=== PATIENT | male | born 1945 | race Caucasian/White ===

== ENCOUNTER 2023-02-21 08:57 | Outpatient (CLI) | payer OTHER, SELFPAY ==
[2023-02-21] MEDS: albuterol 2.5 mg/3 mL Neb INHALATION (09:43)
--- NOTE | 2023-02-21 10:53 | XR_ITS ---
WS: [id number] Exam: XR chest 2V* [id number] Date/Time of Exam: 02/21/2023 10:56 AM Reason For Exam: ASTHMA No priors. The lungs are clear and fully expanded. Normal cardiomediastinal silhouette. No pleural effusions. Re gional bony elements are intact. Signs of coronary artery stenting. Spondylosis of the dorsal spine. XR/XR chest 2V* [id number] IMPRESSION: 1. No acute cardiopulmonary finding.
== END 2023-02-21 08:58 | disposition home or self-care (01) ==
PROVIDERS: PCP Hospitalist; Visit Provider Chiropractor
DX: J45.909 Unspecified asthma, uncomplicated (principal)
CPT/HCPCS: 71046; 94060; 94726; 94729; J7613